=== PATIENT | male | born 1970 | race Caucasian/White ===

== ENCOUNTER 2017-08-26 17:37 | Emergency (ER) | payer MEDICAID ==
[~2017-08-26] VITALS: Ht 175.3 cm; Wt 79.5 kg
[2017-08-26] MEDS ORDERED: METHOCARBAMOL 500 MG TABLET PO ONE (19:30)
[2017-08-26 20:33] VITALS: BP 141/95
[2017-08-26] MEDS ORDERED: KETOROLAC TROMETHAMINE 30 MG/ML VIAL IM ONE (21:00)
== END 2017-08-26 21:09 | disposition home or self-care (01) ==
LOC: EMS 17:38
DX: R51 Headache (principal); M54.2 Cervicalgia; M54.9 Dorsalgia, unspecified; I10 Essential (primary) hypertension; E78.00 Pure hypercholesterolemia, unspecified
CPT/HCPCS: 70450; 99284; J1885

== ENCOUNTER 2018-01-18 11:38 | Emergency (ER) | payer MEDICAID, OTHER ==
[~2018-01-18] VITALS: Ht 167.6 cm; Wt 100.0 kg
[2018-01-18] MEDS ORDERED: IBUPROFEN 600 MG TABLET PO ONE (13:30)
[2018-01-18 15:22] VITALS: BP 134/91
== END 2018-01-18 15:27 | disposition home or self-care (01) ==
LOC: EMS 11:39
DX: S42.031A Displaced fracture of lateral end of right clavicle, initial encounter for closed fracture (principal); I10 Essential (primary) hypertension; E78.00 Pure hypercholesterolemia, unspecified; W20.8XXA Other cause of strike by thrown, projected or falling object, initial encounter; Y93.89 Activity, other specified; Y92.89 Other specified places as the place of occurrence of the external cause; Y99.0 Civilian activity done for income or pay
CPT/HCPCS: 99284